=== PATIENT | female | born 1965 | race Caucasian/White ===

== ENCOUNTER 2017-04-18 14:47 | Emergency (ER) | payer OTHER ==
[~2017-04-18] VITALS: Ht 170.2 cm; Wt 74.0 kg
[~2017-04-18 14:47] MED LIST: DARVOCET-N 100100 MG OR; NO HOME MEDS; PENICILLN VK500 MG OR
[2017-04-18] MEDS ORDERED: MEDDOSEPAK PO (16:36)
[2017-04-18] MEDS ORDERED: FLEXERIL PO (16:36)
[2017-04-18] MEDS ORDERED: ULTRAM50 M1 PO (16:38)
[2017-04-18 16:40] VITALS: BP 132/74
== END 2017-04-18 16:40 | disposition home or self-care (01) | DRG 552 ==
LOC: ED 14:47
DX: M54.17 Radiculopathy, lumbosacral region (principal); M54.41 Lumbago with sciatica, right side